=== PATIENT | female | born 1985 | race Caucasian/White ===

== ENCOUNTER 2025-02-11 00:13 | Inpatient (IN) | payer BC, SELFPAY ==
[2025-02-10 19:57] VITALS: BP 127/101
[2025-02-10 20:20] LABS: % Basophils 0.3 % (0-2); % Eosinophils 18.4 % (0-6); % Immature Granulocytes 0.1 % (0-0.5); % Lymphocytes 40.7 % (20.5-51.1); % Monocytes 5.4 % (1.7-9.3); % Neutrophils 35.1 % (42.2-75.2); Absolute Eosinophils 1.4 10^3/uL (0-0.7); Absolute Lymphocytes 3.2 10^3/uL (1.2-3.4); Absolute Monocytes 0.4 10^3/uL (0.1-0.6); Absolute Neutrophils 2.7 10^3/uL (1.4-6.5); Hematocrit 31.5 % (37.0-47.0); Hemoglobin 10.1 g/dL (12.0-16.0); Mean Corp Hgb Conc. 32.1 g/dL (33.0-37.0); Mean Corpuscular Hgb 25.7 pg (27.0-31.0); Mean Corpuscular Volume 80.2 fL (81.0-99.0); Mean Platelet Volume 8.5 fL (7.4-10.4); Nucleated Red Blood Cells % 0 %; Platelet Count 320 10^3/uL (130-400); Red Blood Cell Count 3.93 10^6/uL (4.20-5.40); Red Cell Dist. Width 15.7 % (11.5-14.5); White Blood Cell Count 7.8 10^3/uL (4.8-10.8)
[2025-02-10 20:36] LABS: ALT (SGPT) 57 U/L (0-35); AST (SGOT) 48 U/L (14-36); Albumin 4.5 g/dl (3.5-5.0); Alkaline Phosphatase 298 U/L (38-126); Blood Urea Nitrogen 11 mg/dl (7-17); Calcium 10.5 mg/dl (8.4-10.2); Carbon Dioxide 23 mmol/L (22-30); Chloride 104 mmol/L (98-107); Glucose 97 mg/dl (70-99); Potassium 4.1 mmol/L (3.5-5.1); Sodium 142 mmol/L (135-145); Total Bilirubin 0.6 mg/dl (0.2-1.3); Total Protein 8.4 g/dl (6.3-8.2); eGFR > 60.00
[2025-02-10 20:37] LABS: Lipase 252 U/L (23-300)
[2025-02-10 21:33] LABS: HCG, Serum Qualitative Screen Negative
--- NOTE | 2025-02-10 22:33 | ED.GENMED ---
History of Present Illness
General
Chief Complaint: Abdominal Pain
Source: patient and family
Time Seen by Provider: 02/10/25 22:07
History of Present Illness
History of Present Illness:
This is a 39f who has never been here before, presents with severe subacute abdominal pain. She has had surgical complications form a cholecystectomy, Partial Gastrectomy and Vagotomy done at [facility] in December. She feels that her
Drain is clogged and is in severe pain. This has happened to her before. She has an appointment with [facility] early next week to try to mitigate the situation.
Review of Systems
Review of Systems
Allergies reviewed?: Yes
Other source history: family
All Other Systems: ROS reviewed and negative except as documented in HPI and ROS
ABD/GI: Reports abdominal pain and constipated
Psychiatric: Reports anxiety
Phy Exam
General Physical Exam
General Presentation: well appearing and moderate distress
General age: appears stated age
General Skin: warm and dry
General Habitus: normal
General Mental: alert
General Hydration: appears well hydrated
ENT Exam
ENT Exam: EOMI and neck supple
Cardiovascular Exam
Cardiovascular Exam: regular rate/rhythm and no edema
Pulmonary Exam
Pulmonary Exam: lungs clear and no respiratory distress
Gastrointestinal Exam
Gastrointestinal Exam: soft, non distended, no abdominal hernia, rebound and surgical scar
External Findings: biliary drainage tube
Palpation: generalized: Minimal tenderness
Auscultation of Abdomen: hypoactive
Neurological Exam
Neurological Exam: alert, oriented x3 and no motor deficits
Musculoskeletal Exam
Musculoskeletal Exam: full ROM and no edema
Skin Exam
Skin Exam: normal color and warm/dry
Psychiatric Exam
Psychiatric Exam: normal mood/affect
Course
Orders/Labs/Results
Orders:
Orders
02/10/25 20:11
CBC/With Diff [Complete Blood Count/With Diff] Urgent
CMP [Comprehensive Metabolic Panel] Urgent
HCG, Serum Qualitative Screen Urgent
Comment: ADD ON
Lipase Urgent
02/10/25 20:21
CT Abd/pelvis W Iv Cont Urgent
Comment:
Reason For Exam: drain clogged/pain
02/10/25 20:51
Add On- LAB Urgent
Tests Added?: serum BHCG qualitative
02/10/25 22:32
HYDROmorphone [Dilaudid] 1 mg IV NOW STA
Ondansetron Injectable [Zofran] 4 mg IV NOW STA
02/10/25 22:33
0.9% Sodium Chloride 1000 ml [Nss] 1,000 ml IV BOLUS
02/10/25 23:10
Glycerin [Glycerin Suppository Adult] 1 supp RECTAL NOW STA
02/10/25 23:41
Admit/Transfer Patient As Directed
Co-Sign Provider:
Level of Care: Inpatient admission
Assign to:: Medical/Surgical
Physician / Group: austyn
Diagnosis: abdominal pain
Reason for Hospitalization: abdominal pain
Expected length of stay greater than two midnights?: Yes
ELOS- Estimated Length of Stay in days: 3
I certify the patient meets the requirements for IP care: Yes
IRAD CONSULT Routine
Consulting Provider: Trell Warner
Was physician already notified: Yes
Reason for Consult/Procedure: IR drain check
Acknowledgement that appropriate orders are entered: Yes
PRN Pain Medication Management As Directed
May give lesser potent ordered pain med per pt: Yes
preference::
Protocol:: Medication orders for pain may be administered in a
manner that supports deferring to patient preference
when the pt is:
- Requesting an ordered lesser potent pain medication.
Least to most potent pain medications are defined
as: acetaminophen < NSAID < tramadol < opioids
(morphine, oxycodone, hydromorphone).
- Requesting a lesser dose of the same medication IF
ORDERED.
- Requesting a less intrusive route of administration
if both routes are prescribed by the provider (PO <
IV).
02/10/25 23:43
Code Status As Directed
Resuscitation Status: Full Code
02/11/25 00:46
Acetaminophen [Tylenol] 650 mg PO Q4HPRN PRN
Bisacodyl [Dulcolax] 10 mg RECTAL [id number] PRN
Docusate W/Senna [Senokot-S] 1 tablet PO BIDPRN PRN
HYDROmorphone [Dilaudid] 0.5 mg IV Q4HPRN PRN
Oxycodone [Roxicodone] 5 mg PO Q4H PRN
Polyethylene Glycol Powder [Miralax] 17 grams PO DAILYPRN PRN
Sennosides [Senokot] 8.6 mg PO BID
02/11/25 00:46
Activity As Directed
Activity Level: As Tolerated
Vital Signs As Directed
Frequency: Per unit guidelines
DX Deep Vein Thrombosis Video Routine
02/11/25 02:00
Quetiapine Fumarate [Seroquel] 50 mg PO HS
02/11/25 Breakfast
Regular
At Your Request: Full Participation
Complete Blood Count/No Diff IN AM
LFT [Sbcau-Guzn-Pvilooc] IN AM
02/11/25 08:00
Bupropion(24Hr)Extended Releas [WELLBUTRIN XL (24 hour extended release)] 300 mg PO DAILY
Docusate Sodium [Colace] 100 mg PO BID
Lamotrigine [Lamictal] 75 mg PO DAILY
Pantoprazole [Protonix] 40 mg PO DAILY
Polyethylene Glycol Powder [Miralax] 17 grams PO DAILY
02/11/25 18:00
Enoxaparin Sodium [Lovenox] 40 mg SC QPM
02/12/25 06:00
Complete Blood Count/No Diff IN AM
02/13/25 06:00
Complete Blood Count/No Diff IN AM
02/14/25 06:00
Complete Blood Count/No Diff IN AM
Abnormal Lab Results
02/10/25
20:11
RBC 3.93 L 10^6/uL
(4.20-5.40)
Hgb 10.1 L g/dL
(12.0-16.0)
Hct 31.5 L %
(37.0-47.0)
MCV 80.2 L fL
(81.0-99.0)
MCH 25.7 L pg
(27.0-31.0)
MCHC 32.1 L g/dL
(33.0-37.0)
RDW 15.7 H %
(11.5-14.5)
Absolute Eos (auto) 1.4 H 10^3/uL
(0-0.7)
Neutrophils % 35.1 L %
(42.2-75.2)
Eosinophils % 18.4 H %
(0-6)
Calcium 10.5 H mg/dl
(8.4-10.2)
AST 48 H U/L
(14-36)
ALT 57 H U/L
(0-35)
Alkaline Phosphatase 298 H U/L
(38-126)
Total Protein 8.4 H g/dl
(6.3-8.2)
02/10/25 20:11
02/10/25 20:11
Vital Signs
Initial and Last Documented VS:
Initial Vital Signs
Temp Pulse Resp BP Pulse Ox
97.4 F 102 15 127/101 99
02/10/25 19:57 02/10/25 19:57 02/10/25 19:57 02/10/25 19:57 02/10/25 19:57
Last Documented Vital Signs
Temp Pulse Resp BP Pulse Ox
98.1 F 100 18 117/65 100
02/11/25 01:00 02/11/25 01:00 02/11/25 01:00 02/11/25 01:00 02/11/25 01:00
*Critical Care Note
Total Time (30-74mins, 75-104mins- exclusive of procedures): Not Applicable
Update Note
Update Note:
Patient to be admitted to the hospitalist service.
The may decide to consult IR in the morning.
No promise of a surgical consult was made. Patient has a follow-up appointment at [facility] Department of surgery on Friday.
Hospitalist initially asked me to transfer patient to [place]. During my conversations with family, they did not want to go back there. I told the hospitalist that be willing to transfer. Hospitalist went back into the room and spoke with the
family and advised me that they would be staying here and she would do the admission.
ED Attending Note
-
Portions of this chart may have been created with voice recognition software.� Occasional wrong word or��sound alike� substitutions may have occurred due to the inherent limitations of voice recognition software.
Discharge Plan
Departure
Patient Disposition: Admit
Date of Disposition: 02/10/25
Time of Disposition: 23:09
Admit to: Med/Surg
Presentation/result/management discussed w/ accepting MD/DO: Hospitalist
Discharge Problem:
Post-operative pain, Constipation
Interventions
Interventions:
*Risk Screen - Suicide Last Done: 02/10/25 19:57
*General Assessment Last Done: 02/10/25 19:57
*Neglect/Abuse Screening Last Done: 02/10/25 19:57
*ED COVID-19 Vaccine History Last Done: 02/10/25 19:57
*Nursing Disposition Last Done: 02/11/25 00:45
DA-Blhiau-Zmhzhavhic Assessment Last Done: 02/10/25 20:30
Discharge Date and Time
Discharge Date/Time: 02/11/25 00:45
[2025-02-10] MEDS: DILAUDID 1 MG IV (22:35)
[2025-02-10] MEDS: ZOFRAN 4 MG IV (22:35)
[2025-02-10] MEDS: NSS 1000 IV (22:35)
[2025-02-10 22:47] VITALS: BP 119/75
--- NOTE | 2025-02-10 22:55 | HPS.HSE ---
Family Physician
-
Family Physician: Ender Brooks
Chief Complaint
-
abdominal pain
History of Present Illness
39 year old with PMH for Bipolar, ADHD, depression, OCD presented with abdominal pain. patient was admitted to [facility] in December with abdominal pain. she was noted to have PUD, chronic prepyloric gastric ulcer with gastric outlet obstruction.
patient underwent robotic distal gastrectomy with Vikas-en-Y gastrojejunostomy, robotic truncal vagotomy, robotic cholecystectomy. patient was returned to [place] on 01/05 with continued abdominal pain. she was noted to have duodenal stump leak for
which IR drain was placed on 01/07.
today she was note to have generalized abdominal pain. denied nausea and vomiting. denied Diarrhea. denied fever, chills, chest pain, sob. denied dysuria or hematuria.
CT with the impression of apparent recent cholecystectomy and partial gastrectomy. Findings suggesting prior left-sided small bowel surgery.Right anterior abdominal wall percutaneous drainage catheter extending to the approximate region of the james
hepatis without gross accompanying abnormal fluid collection or abnormal fluid collection in the expected location of the gallbladder fossa.Distended large bowel with stool through to the rectum which could represent constipation. Cannot exclude
large bowel ileus.Approximate 2.8 cm simple appearing right ovarian/adnexal cyst.
patient received dose of Dilaudid, Zofran and normal saline in ER. admitting for further management.
Medical History
Past Medical History
Past Medical History: Reports Other
Additional Past Medical History:
Bipolar
ADHD
depression
OCD
Anxiety
Past Surgical History: Reports Other
Additional Past Surgical History:
nasal surgery
Social History
Tobacco: Former Smoker
Alcohol: None
Drug: None
Living: With Family
Family History
Family History: Not pertinent
Allergies / Home Medications
Allergies reflects when Allergies were last updated in [employer].
Home Medications with original date entered in [employer]
Allergy/Medication List:
Allergies
Allergy/AdvReac Type Severity Reaction Status Date / Time
No Known Allergies Allergy Verified 02/10/25 20:03
Home Medications
bupropion HCl 300 mg 24 hr tablet, extended release 300 mg PO DAILY 02/10/25
lamotrigine 25 mg tablet (Lamictal) 75 mg PO DAILY 02/10/25
metoclopramide HCl 5 mg tablet (Reglan) 5 mg PO Q6H PRN nausea 02/10/25
omeprazole 40 mg capsule,delayed release 40 mg PO DAILY 02/10/25
oxycodone 5 mg capsule 5 mg PO Q4H PRN moderate pain 02/10/25
quetiapine 50 mg tablet (Seroquel) 50 mg PO HS 02/10/25
Review of Systems
-
Constitutional: Reports No Symptoms
EENT: Reports No Symptoms
Respiratory: Reports No Symptoms
Cardiac: Reports No Symptoms
Abdomen/GI: Reports Abdominal Pain and Diarrhea
: Reports No Symptoms
Musculoskeletal: Reports No Symptoms
Skin: Reports No Symptoms
Neurological: Reports No Symptoms
Endocrine: Reports No Symptoms
Hematologic/Lymphatic: Reports No Symptoms
Psych: Reports No Symptoms
Physical Exam
Vital Signs
Vital Signs
Temp Pulse Resp BP Pulse Ox
97.4 F 92 20 119/75 100
02/10/25 19:57 02/10/25 22:47 02/10/25 22:47 02/10/25 22:47 02/10/25 22:47
Physical Exam
General: Well Developed, Well Nourished and No Apparent Distress
HEENT: NormoCephalic, Moist mucous membranes and Atraumatic
Respiratory: Clear
Cardiac: S1/S2 and Regular Rhythm; No Murmur or Rub
GI: Soft, Non Distended, Normal Bowel Sounds and Tender; No Organomegaly
Rectal: Deferred by Provider
Musculoskeletal: No Clubbing, No Cyanosis and No Edema
Skin: No Rash
Neuro: Nonfocal/grossly intact
Laboratory Results
-
02/10/25 20:11
02/10/25 20:11
Laboratory Results
Total Bilirubin 0.6 mg/dl (0.2-1.3) 02/10/25 20:11
AST 48 U/L (14-36) H 02/10/25 20:11
ALT 57 U/L (0-35) H 02/10/25 20:11
Alkaline Phosphatase 298 U/L (38-126) H 02/10/25 20:11
Lipase 252 U/L (23-300) 02/10/25 20:11
Data Reviewed
-
CT Scan: Report Reviewed by me
Lab Data: Labs Reviewed by me
Impression/Plan
-
#severe abdominal pain likely constipation
#recent cholecystectomy, partial gastrectomy and vagotomy in December at [facility]
-duodenal stump leak for which IR drain was placed on 01/07.
-CT with the impression of Apparent recent cholecystectomy and partial gastrectomy. Findings suggesting prior left-sided small bowel surgery.Right anterior abdominal wall percutaneous drainage catheter extending to the approximate region of the
james hepatis without gross accompanying abnormal fluid collection or abnormal fluid collection in the expected location of the gallbladder fossa.Distended large bowel with stool through to the rectum which could represent constipation. Cannot
exclude large bowel ileus.Approximate 2.8 cm simple appearing right ovarian/adnexal cyst.
-IR consulted for drain check
-Dilaudid prn for pain
-oxy continued
-received Glycerin in ER
-miralax, Colace and senna added
#anemia likely post op
-hgb 10.1
-no active bleeding
-ctm
#transaminitis
-AST 48,ALT 57,ALK 295
--continue to trend
#hxt of Bipolar/OCD/Anxiety/AHDD/PTSD
-bupropion, Lamictal, Seroquel continued
#DVT prophylaxis
-scd
#CODE status
-full code
--- NOTE | 2025-02-10 23:01 | W.PN.UPDATE ---
Update Note
Progress Note Update
This is an addendum to H&P written by PATIENT PORTAL CONCIERGE Eboni Stone
I saw and examined the patient.
The PATIENT PORTAL CONCIERGE's note was reviewed and I agree with the note.
Comment:
Ms. Damon Goff is a 39 yo woman with hx abdominal surgery at [place] - cholecystectomy, partial gastrectomy and vagotomy presents with significant abdominal pain, concerned her drain is clogged. Per patient's paper work she had a
non-healing gastric ulcer s/p partial gastrectomy, truncal vagotomy, RnY Gj with colecystectomy on 12/30. Patient was discharged on 01/03 and then admitted on 01/07 for postoperative pancreatitis versus early duodenal leak s/p IR guided BG fossa drain
placement.
Patient has had decreased PO intake post-op. Pain started earlier today. She is passing gas and had loose stools.
Triage VS: T 97.4, P 102, RR 15, BP 127/101, SpO2 99%
On exam patient's abdomen is soft and non-tender (post Dilaudid); Chest: clear, CV: S1, s2, RRR
LABS: WBC 7.8, Hg 10.1, PLT 320, Na 142, K+ 4.1, CO2 23, BUN 11, Cr 1.0, Ca 10.5, T. Bili 0.6, AST 48, ALT 57, Alk Phos [address] A/P
IMPRESSION:
Apparent recent cholecystectomy and partial gastrectomy. Findings suggesting prior left-sided small bowel surgery.
Right anterior abdominal wall percutaneous drainage catheter extending to the approximate region of the james hepatis without gross accompanying abnormal fluid collection or abnormal fluid collection in the expected location of the gallbladder fossa.
Distended large bowel with stool through to the rectum which could represent constipation. Cannot exclude large bowel ileus.
Approximate 2.8 cm simple appearing right ovarian/adnexal cyst.
Abdominal Pain
Constipation
Recent cholecystectomy, partial gastrectomy and vagotomy at [facility]
-case was discussed by ER with Dr. Warner who states he will look at drain in the morning; as patient is concerned drain is clogged and she had similar pain in past. CT shows constipation, no e/o infection.
-treat constipation, enema ordered in ER
-discussed with patient and family that given surgery done at [facility], if above interventions not successful in alleviating pain then she will likely need to be transferred back to [facility]
Remainder of plan per PATIENT PORTAL CONCIERGE note
[2025-02-11] MEDS: GLYCERIN SUPPOSITORY ADULT 1 SUPP RECTAL (00:09)
[2025-02-11 01:00] VITALS: BP 117/65; BMI 26.1
--- NOTE | 2025-02-11 01:28 | TRANSFER ---
Received pt from ED at 0045 dx abd pain. Pt denied having any pain - stated medication given ED was very effective. Pt AAOx4, able to make all needs known, VSS. Biliary drainage tube putting out yellow/green drainage. vanessa CDI. Plan of care
discussed w pt. Assessment as documented.
[2025-02-11] MEDS: SENOKOT 8.6 MG PO ×2 (01:35→09:18)
[2025-02-11] MEDS: SEROQUEL 50 MG PO (01:35)
[2025-02-11 07:00] VITALS: BP 110/70
[2025-02-11 07:35] LABS: Hematocrit 27.9 % (37.0-47.0); Mean Corp Hgb Conc. 32.3 g/dL (33.0-37.0); Mean Corpuscular Hgb 26.2 pg (27.0-31.0); Mean Corpuscular Volume 81.1 fL (81.0-99.0); Mean Platelet Volume 9.1 fL (7.4-10.4); Platelet Count 259 10^3/uL (130-400); Red Blood Cell Count 3.44 10^6/uL (4.20-5.40); Red Cell Dist. Width 15.7 % (11.5-14.5); White Blood Cell Count 6.1 10^3/uL (4.8-10.8)
[2025-02-11 08:00] LABS: ALT (SGPT) 74 U/L (0-35); AST (SGOT) 76 U/L (14-36); Albumin 3.7 g/dl (3.5-5.0); Alkaline Phosphatase 333 U/L (38-126); Direct Bilirubin 0.3 mg/dl (0.0-0.4); Total Bilirubin 0.4 mg/dl (0.2-1.3); Total Protein 6.8 g/dl (6.3-8.2)
[2025-02-11] MEDS: COLACE 100 MG PO (09:17)
[2025-02-11] MEDS: WELLBUTRIN XL (24 hour extended release) 300 MG PO (09:17)
[2025-02-11] MEDS: PROTONIX 40 MG PO (09:17)
[2025-02-11] MEDS: MIRALAX 17 GRAMS PO (09:17)
[2025-02-11] MEDS: LAMICTAL 75 MG PO (09:18)
[2025-02-11] MEDS: REGLAN 5 MG PO (09:24)
--- NOTE | 2025-02-11 11:16 | CM ---
Reviewed the chart notes and spoke with the patient and her mother at the bedside. The patient resides with her significant other in a first floor condo with one step to enter. The patient reports no DME/VN/SNF in the past. The patient confirmed
her pharmacy of choice is the [facility]. CM continues to be available to patient/family and is monitoring medical plan for needs at discharge.
Plan: Discharge plans will depend on the patient's progress.
[2025-02-11] MEDS: FLEET MINERAL OIL ENEMA 133 ML RECTAL (11:29)
--- NOTE | 2025-02-11 12:02 | CON.GS ---
Addendum entered and electronically signed by Brian Diaz MD 02/11/25 14:48:
I saw and examined the patient independently.
The resident's documentation was reviewed and I agree with the note, assessment and plan except where noted below.
Comment: This is a 39-year-old female with significant past medical history of peptic ulcer disease status post Vikas-en-Y gastrojejunostomy, truncal vagotomy, cholecystectomy which was complicated by a duodenal stump leak managed by IR drains.
Unclear if the drains have been placed outside of the lumen or into the stump itself. She has been complaining of pain and irritation around the site likely due to bilious pruritus. General surgery consulted to comment on her CT scan which I
reviewed with the hospitalist. There are no undrained collections. Her anastomoses appear well-healed. Her CT was only notable for some mild constipation for which she received an enema with good clinical effect. The patient is actually seeing
her treating physicians at [facility] today and would like to be discharged.
No acute general surgery intervention warranted at this time, And patient cleared for discharge from a surgical perspective.
All questions from the patient and family answered.
I spent 60 minutes in total for the care of this patient today including direct patient care and counseling, reviewing labs, imaging, coordination of care, as well as documentation.
Original Note:
Consultation
-
Date/Time Consultation Requested: 02/11/2025 11:37
Date/Time Consultation Performed: 02/11/2025 12:02
Requesting Provider: Dr. Gerry Weeks
Performing Provider: Dr. Brian Diaz
Medical History
-
Chief Complaint: Abdominal pain and diarrhea
History of Present Illness:
39-year-old female with past medical history of bipolar disorder, ADHD, depression, OCD, peptic ulcer disease status post RnY and gastrojejunostomy, truncal vagotomy presenting with abdominal pain and diarrhea. Patient was diagnosed with peptic
ulcer at age 12. H. pylori negative and difficult to scope so she remained on long-term PPIs, however recent EGD revealed scarring around the peptic ulcer and they decided to do an elective RnY Gj. Elective RnY Gj with a truncal vagotomy done on
12/30. Due to significant adhesions and difficult anatomy, cholecystectomy was also performed. Per pt, she was discharged on 01/03 then readmitted on 01/07 due to searing abdominal pain found to have postop pancreatitis versus early duodenal leak
status post IR guided BG fossa drain. Hospitalization was complicated with intra abdominal cavity yeast infection resulting in GUICHO drain placement in [facility] as well. She was discharged on 01/22 from [facility] with 2 drains. Left drain was removed at
subsequent IR follow-up, right drain was repositioned and maintained. Subsequently, patient noted pus and ooze from drain site and blistering around the skin and she was started on 5 days of amoxicillin. Pt stated on 02/08, she had an appointment
with IR and they noted the drain to be clogged and drain was repositioned. Yesterday, pt had an increasing amount of abdominal pain and diarrhea so she came to to the ED worried that her drain got re-clogged or if there was an infection. She denies
any nausea, vomiting, fevers, chills.
In the ED, AFVSS, WBC 7.8, Hg 10.1, PLT 320, Na 142, K+ 4.1, CO2 23, BUN 11, Cr 1.0, Ca 10.5, T. Bili 0.6, AST 48, ALT 57, Alk Phos 298. CT revealed post-surgical changes with proper drain placement along with large distended bowel with moderate
soft stool burden. No obstruction. Pt was given glycerin in ED, 1mg dilaudid, and was admitted. General surgery was consulted given patient's complicated surgical past. Requests for formal record from [facility] has been placed results are pending as
exact operative procedures and drain placement location is currently unclear and difficult to pin point with imaging.
CT revealed apparent recent cholecystectomy and partial gastrectomy. Findings suggesting prior left-sided small bowel surgery.
Right anterior abdominal wall percutaneous drainage catheter extending to the approximate region of the james hepatis without gross accompanying abnormal fluid collection or abnormal fluid collection in the expected location of the gallbladder fossa.
Distended large bowel with stool through to the rectum which could represent constipation. Cannot exclude large bowel ileus.
Approximate 2.8 cm simple appearing right ovarian/adnexal cyst.
Past Medical History
Past Medical History: Other (Bipolar, ADHD, depression, OCD, anxiety, peptic ulcer disease status post partial gastrectomy)
Past Surgical History: Other (Nasal surgery, partial gastrectomy, cholecystectomy,)
Social History
Tobacco: Former Smoker
Alcohol: None
Drug: None
Living: With Family
Allergies / Home Medications
Allergy/AdvReac Type Severity Reaction Status Date / Time
No Known Allergies Allergy Verified 02/10/25 20:03
�Medication �Instructions �Recorded �Confirmed �Type
bupropion HCl 300 mg 24 hr tablet, 300 mg PO DAILY 02/10/25 02/11/25 History
extended release
lamotrigine 25 mg tablet (Lamictal) 75 mg PO DAILY 02/10/25 02/11/25 History
metoclopramide HCl 5 mg tablet 5 mg PO Q6H PRN nausea 02/10/25 02/11/25 History
(Reglan)
omeprazole 40 mg capsule,delayed 40 mg PO DAILY 02/10/25 02/11/25 History
release
oxycodone 5 mg capsule 5 mg PO Q4H PRN moderate pain 02/10/25 02/11/25 History
quetiapine 50 mg tablet (Seroquel) 50 mg PO HS 02/10/25 02/11/25 History
Adderall PO 1XD 02/11/25 History
Valium mg PO DAILY 02/11/25 History
Review of Systems
-
History Source: Patient
Abdomen/GI: Abdominal Pain and Diarrhea
Skin: No Symptoms
Neurological: No Symptoms
A 10 point review of systems was completed, and was negative except as per HPI.
Physical Exam
Vital Signs
Temp Pulse Resp BP Pulse Ox
98.0 F 92 14 110/70 96
02/11/25 07:00 02/11/25 07:00 02/11/25 07:00 02/11/25 07:00 02/11/25 07:00
02/10/25 02/11/25 02/12/25
06:59 06:59 06:59
Actual Weight 77.734 kg
Body Mass Index (BMI) 26.1
Lab Results
02/11/25 05:45
02/10/25 20:11
WBC 6.1 10^3/uL (4.8-10.8) 02/11/25 05:45
Hgb 9.0 g/dL (12.0-16.0) L 02/11/25 05:45
Hct 27.9 % (37.0-47.0) L 02/11/25 05:45
Plt Count 259 10^3/uL (130-400) 02/11/25 05:45
Abs Immat Gran (auto) 0.0 10^3/uL (0-0.05) 02/10/25 20:11
Neutrophils % 35.1 % (42.2-75.2) L 02/10/25 20:11
Physical Exam
General: No Apparent Distress
GI: Soft, Non Distended, Tender (Around GUICHO drain ) and Other (RRQ drain, erythema and mucous around wound opening)
Neuro: AO x 3
Psych: Calm
Assessment / Plan
-
39-year-old female with recent hx abdominal surgeries presents with ab pain and diarrhea. Surgery consulted due to complicated past surgical history.
AFVSS
Ab tender around drain sight, otherwise non tender, nondistended, no guarding or rigidity. Slight erythema and purulence around drain site. Bilious fluid in drain. LLQ scar from prior GUICHO drain healing well.
CT revealed dilated bowel with moderate soft stool burden and proper drain placement. Drain appears to be working.
Records from [facility] pending - exact hospital course currently unclear
Plan:
-CT revealed dilated bowel with moderate soft stool burden - fleet enema
-No indication for urgent surgical management at this point in time
-If patient able to have a BM and remains clinically stable, okay to discharge from surgical standpoint
-Recommend f/u with primary team at [facility]
--- NOTE | 2025-02-11 13:21 | W.PN.HOSP.TC ---
Today's Communication/Plan
-
More than 30 minutes spent in discharge including
Final examination of the patient
Summarizing hospital stay
Instructions for continuing care to all relevant caregivers
Preparation of discharge records, prescriptions, and referral forms
Total time spent (in minutes): 33mins
Assessment / Plan
Assessment / Plan
Abdominal pain
-CT showing likely constipation
-Due recent hx of complex intraabdominal surgery with drain placement will consult surgery
-Will start bowel reg (miralax, senna,, colace add fleet enema x1)
-Follow bariatric diet
-Outpt surgery follow up
-Continue follow up/drain care with primary institution that paced it
Hx of Bipolar/OCD/Anxiety/AHDD/PTSD
-bupropion, Lamictal, Seroquel
Anticipated Discharge: Today (If cleared by surgery)
Subjective/Interval History
-
Date of Service: February 11, 2025
seen and examined. no new complaints. no acute overnight events
no abd distention
abd pain improved
asking for reglan
reviewed interaction of reglan and seroquel that can cause extrapyramidal symptoms
-she states she will continue both of them for now and speak with her outpatient psychiatrist about potentially disconitning the seroquel
Objective Data
-
Labs:
Laboratory Results
02/11/25
05:45
WBC 6.1
Hgb 9.0 L
Hct 27.9 L
Plt Count 259
Total Bilirubin 0.4
AST 76 H
ALT 74 H
Alkaline Phosphatase 333 H
Vital Signs:
Vital Signs
Temp Pulse Resp BP Pulse Ox
98.0 F 92 14 110/70 96
02/11/25 07:00 02/11/25 07:00 02/11/25 07:00 02/11/25 07:00 02/11/25 07:00
I&O
02/10/25 02/11/25 02/12/25
06:59 06:59 06:59
Intake Total 120 / 120 720 / 720
Output Total 85 / 85
Balance 35 / 35 720 / 720
[2025-02-11 14:33] VITALS: BP 101/70
== END 2025-02-11 14:58 | disposition home or self-care (01) | DRG 392 ==
LOC: 2 SOUTH 00:13
PROVIDERS: Registered Nurse; Student in an Organized Health Care Education/Training Program; ADMITTING PHYSICIAN Student in an Organized Health Care Education/Training Program; ATTENDING PHYSICIAN Hospitalist; CONSULT PHYSICIAN Surgery; EMERGENCY PHYSICIAN Student in an Organized Health Care Education/Training Program; FAMILY PHYSICIAN Internal Medicine
DX: K59.00 Constipation, unspecified (principal); F31.9 Bipolar disorder, unspecified; F42.9 Obsessive-compulsive disorder, unspecified; D64.9 Anemia, unspecified; F90.9 Attention-deficit hyperactivity disorder, unspecified type; Z90.3 Acquired absence of stomach [part of]; Z87.891 Personal history of nicotine dependence; Z87.11 Personal history of peptic ulcer disease; Z79.899 Other long term (current) drug therapy
CPT/HCPCS: 74177; 80053; 80076; 83690; 84703; 85025; 85027; 96361; 96374; 96375; 99285; Q9967

== ENCOUNTER → 2025-04-21 12:35 | Outpatient (REF) | payer BC, SELFPAY ==
[2025-04-21 13:48] LABS: % Basophils 0.4 % (0-2); % Eosinophils 3.3 % (0-6); % Immature Granulocytes 0.3 % (0-0.5); % Lymphocytes 34.1 % (20.5-51.1); % Monocytes 7.6 % (1.7-9.3); % Neutrophils 54.3 % (42.2-75.2); Absolute Eosinophils 0.2 10^3/uL (0-0.7); Absolute Lymphocytes 2.3 10^3/uL (1.2-3.4); Absolute Monocytes 0.5 10^3/uL (0.1-0.6); Absolute Neutrophils 3.6 10^3/uL (1.4-6.5); Hematocrit 36.3 % (37.0-47.0); Hemoglobin 12.1 g/dL (12.0-16.0); Mean Corp Hgb Conc. 33.3 g/dL (33.0-37.0); Mean Corpuscular Hgb 27.8 pg (27.0-31.0); Mean Corpuscular Volume 83.3 fL (81.0-99.0); Mean Platelet Volume 9.1 fL (7.4-10.4); Nucleated Red Blood Cells % 0 %; Platelet Count 256 10^3/uL (130-400); Red Blood Cell Count 4.36 10^6/uL (4.20-5.40); Red Cell Dist. Width 13.8 % (11.5-14.5); White Blood Cell Count 6.7 10^3/uL (4.8-10.8)
[2025-04-21 13:57] LABS: ALT (SGPT) 26 U/L (0-35); AST (SGOT) 25 U/L (14-36); Albumin 4.7 g/dl (3.5-5.0); Alkaline Phosphatase 120 U/L (38-126); Blood Urea Nitrogen 15 mg/dl (7-17); Calcium 10.3 mg/dl (8.4-10.2); Carbon Dioxide 24 mmol/L (22-30); Chloride 108 mmol/L (98-107); Glucose 83 mg/dl (70-99); Iron 95 ug/dl (37-170); Potassium 4.4 mmol/L (3.5-5.1); Sodium 140 mmol/L (135-145); Total Bilirubin 0.3 mg/dl (0.2-1.3); Total Protein 7.7 g/dl (6.3-8.2); eGFR > 60.00
[2025-04-21 14:06] LABS: Percent Saturation 28 % (20-50); Total Iron Binding Capacity 335 ug/dl (265-497)
[2025-04-21 14:14] LABS: Vitamin D, 25-OH*** 39.9 ng/mL (30-80)
[2025-04-21 14:27] LABS: TSH Reflex To Free T4 1.14 uIU/ml (0.47-4.68)
[2025-04-21 14:53] LABS: Ferritin 17.8 ng/ml (6.24-137)
[2025-04-21 15:03] LABS: Folate 13.6 ng/ml (2.76-20); Vitamin B12 649 pg/ml (239-931)
== END ==
LOC: REG 12:35
DX: Z90.3 Acquired absence of stomach [part of] (principal); K27.9 Peptic ulcer, site unspecified, unspecified as acute or chronic, without hemorrhage or perforation; E86.0 Dehydration; D64.9 Anemia, unspecified; E83.42 Hypomagnesemia; E87.6 Hypokalemia; R74.01 Elevation of levels of liver transaminase levels; L65.9 Nonscarring hair loss, unspecified
CPT/HCPCS: 36415; 80053; 82306; 82607; 82728; 82746; 83540; 83550; 83735; 84425; 84443; 84590; 84630; 85025